=== PATIENT | female | born 2000 | race Caucasian/White ===

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

== ENCOUNTER 2022-10-24 12:28 | Emergency (ER) | payer OTHER, SELFPAY ==
[2022-10-24 12:35] VITALS: BP 136/56; PULSE 99; RESP 16; TEMP 36.7; O2SAT 100
--- NOTE | 2022-10-24 12:43 | ED.DENTAL ---
HPI - Dental/Oral General Chief complaint: Dental/Oral Stated complaint: Toothache Time Seen by Provider: 10/24/22 12:35 Source: patient and RN notes reviewed History of Present Illness HPI Narrative: patient is a 22-year-old female who presents to Urgent Care with her mother with complaints of right upper dental pain and facial swelling. Patient states that it started approximately 2 days ago. States that she has had this tooth looked at before and is supposed to be pulled. Apparently her ENT expressed that the root of the tooth is affecting her sinus cavity. Patient states she also has a lot of right-sided sinus pressure. Denies any fever, nausea or vomiting. States that she has been taking 800 mg ibuprofen. No other acute complaints. No acute distress noted. Patient aware of the plan of care. Some parts of this dictation were generated by voice recognition software and may contain typographical and/or grammatical inaccuracies. Related Data Allergies Allergy/AdvReac Type Severity Reaction Status Date / Time No Known Allergies Allergy Verified 12/15/19 10:50 Review of Systems Review of Systems: CONSTITUTIONAL: Denies fever, chills, or sweats. EYES: Denies visual changes, redness, or discharge. ENT: Denies rhinorrhea, congestion, sore throat, or otalgia. Reports right upper dental pain and facial swelling CARDIOVASCULAR: Denies chest pain, palpitations, or edema. RESPIRATORY: Denies cough or dyspnea. GASTROINTESTINAL: Denies abdominal pain, nausea, vomiting, or diarrhea. GENITOURINARY: Denies dysuria or hematuria. SKIN: Denies rash or itching. MUSCULOSKELETAL: Denies back pain, joint pain, or myalgia. NEUROLOGIC: Denies headache, numbness, or weakness. All other systems reviewed are negative, except as documented in HPI. [facility] Past Medical History Medical History (Updated 10/24/22 @ 12:57 by NAZANIN Jett) No pertinent past medical history Surgical History Surgical History No pertinent past surgical history Family History Family History Mother Medical history non-contributory Social History Social History Smoking status: Never smoker Alcohol intake: never Gender identity (if verbalized by the patient): Female Spiritual care concerns: No Comments At the time of my signature, I reviewed and agree with the nursing past medical, surgical, social, and family history. There is no relevant family history pertinent to the patient complaint. Exam Narrative: GENERAL: This is a well-nourished, well-developed patient, in no apparent distress. HEAD: normocephalic, atraumatic. right frontal sinus tenderness EYES: PERRL. Sclera clear/white. Vision is grossly intact. EARS: External ears normal NOSE: External nose normal with no obvious nasal discharge, nares without redness, no rhinorrhea. THROAT: Mucous membranes moist, posterior pharynx clear. DENTAL: no obvious gumline abscess, edema or erythema To the painful 2, right upper 2nd premolar NECK: Neck supple SKIN: warm, intact with no suspicious lesions or rash, good texture and turgor. NEURO: awake, alert, and oriented to person, place and time. There were no obvious focal neurologic abnormalities. EXTREMITIES: No clubbing, cyanosis, or edema. Course Course Level of Care: Express Care Visit Vital Signs Vital signs: Vital Signs Temperature 98.1 F 10/24/22 12:35 Pulse Rate 99 10/24/22 12:35 Respiratory Rate 16 10/24/22 12:35 Blood Pressure 136/56 L 10/24/22 12:35 Pulse Oximetry 100 10/24/22 12:35 Oxygen Delivery Room Air 10/24/22 12:35 Temperature 98.1 F 10/24/22 12:35 Pulse Rate 99 10/24/22 12:35 Respiratory Rate 16 10/24/22 12:35 Blood Pressure 136/56 L 10/24/22 12:35 Pulse Oximetry 100 10/24/22 12:35 Oxygen Deliver
== END 2022-10-24 13:00 | disposition home or self-care (01) ==
PROVIDERS: Emergency Provider Nurse Practitioner Family; PCP Family Medicine
DX: K08.89 Other specified disorders of teeth and supporting structures (principal)
CPT/HCPCS: 99213; G0463

== ENCOUNTER 2022-12-24 11:15 | Emergency (ER) | payer OTHER, SELFPAY ==
--- NOTE | ~2022-12-24 | XR_ITS ---
EXAMINATION: XR lumbar spine 2-3V DATE: 12/24/2022 13:41 INDICATION: Low back pain. TECHNIQUE: 3 views of lumbar spine were obtained. COMPARISON: None. FINDINGS: There is 4 degrees levocurvature of lumbar spine. Vertebral body heights are normal. There is mildly decreased disc height at L4-L5 and L5-S1. There is multilevel mild facet joint osteoarthrit is. IMPRESSION: 1. Mild lumbar spondylosis. Reviewed, dictated and finalized at location A. IMPRESSION: 1. Mild lumbar spondylosis.
[2022-12-24 12:02] VITALS: BP 142/94; PULSE 76; RESP 18; TEMP 36.7; O2SAT 100
[2022-12-24] MEDS: ACETAMINOPHEN 500 MG TABLET 1000 MG PO (13:10)
--- NOTE | 2022-12-24 13:24 | ED.DENTAL ---
HPI - Dental/Oral General Chief complaint: Dental/Oral Stated complaint: Toothache Time Seen by Provider: 12/24/22 12:31 Source: patient Mode of arrival: ambulatory Limitations: no limitations History of Present Illness HPI Narrative: This is a 22-year-old female that presents to the emergency department with multiple complaints. Reports she has a bad tooth that has been intermittently bothering her for some time. Reports acute pain this morning. Associated with a headache and some right ear pain. Also reports that she went backpacking this weekend and has been having some low back pain since. No known certain injuries, but does report she was carrying about 30 pounds on her back. Denies fever, dysuria, hematuria, numbness or weakness. MD Complaint: tooth pain Location: Tooth # (3) Related Data Allergies Allergy/AdvReac Type Severity Reaction Status Date / Time No Known Allergies Allergy Verified 12/15/19 10:50 Review of Systems Review of Systems: CONSTITUTIONAL: Denies fever ENT: Reports congestion and dentalgia All systems reviewed & are unremarkable except as noted in HPI and below PMFSH Past Medical History Medical History (Updated 12/24/22 @ 14:27 by Meghana Culver PA-C) No pertinent past medical history Surgical History Surgical History No pertinent past surgical history Family History Family History Mother Medical history non-contributory Social History Social History Smoking status: Never smoker Alcohol intake: never Living arrangements: with family Gender identity (if verbalized by the patient): Female Spiritual care concerns: No Exam Narrative: GENERAL: Well-appearing, well-nourished, and in no acute distress. HEAD: Normocephalic, atraumatic. EYES: EOMI. ENT: Nares clear, no rhinorrhea or epistaxis. Mucous membranes moist. Oropharynx without tonsillar hypertrophy exudate or other lesions. Bilateral TMs pearly moreira non-bulging. No trismus. Tooth #3 tender to palpation. No erythema or fluctuance to suggest abscess NECK: Supple. No adenopathy or masses. CHEST: Clear to auscultation. No respiratory distress. No wheezes rales or rhonchi HEART: Regular rate and rhythm. No murmur heard. Normal peripheral pulses. BACK: No midline spinal tenderness EXTREMITIES: Normal range of motion. No edema. Strength equal in bilateral lower extremities (5/5) SKIN: Warm, dry, no rash. NEURO: No focal deficits. Alert and oriented x3. PSYCH: Normal mood and affect Course Course Emergency Course: Patient and family updated on workup and agree with plan of care Vital Signs Vital signs: Vital Signs Temperature 98.1 F 12/24/22 12:02 Pulse Rate 76 12/24/22 12:02 Respiratory Rate 18 12/24/22 12:02 Blood Pressure 142/94 H 12/24/22 12:02 Pulse Oximetry 100 12/24/22 12:02 Oxygen Delivery Room Air 12/24/22 12:02 Temperature 98.1 F 12/24/22 12:02 Pulse Rate 76 12/24/22 12:02 Respiratory Rate 18 12/24/22 12:02 Blood Pressure 142/94 H 12/24/22 12:02 Pulse Oximetry 100 12/24/22 12:02 Oxygen Delivery Room Air 12/24/22 12:02 MDM - Dental/Oral MDM Narrative Medical decision making narrative: Patient presents to the ER with multiple complaints. Reporting dentalgia as well as low back pain after backpacking this weekend. She is afebrile and nontoxic appearing. She is neurologically intact. No evidence for dental abscess on exam. Patient will be started on oral antibiotic. Lumbar spine x-ray is without acute findings. Instructed on care of muscle strain. She is to follow-up with her primary care provider. She was given warnings to return to the ER Was also reporting some chronic sinus problems. Will be given ENT b2b sales consultant for follow-up as needed Differential Diagnosis Differential
--- NOTE | 2022-12-24 13:41 | PC.NURSE ---
patient back from imaging at this time
[2022-12-24] MEDS: FLUCONAZOLE 150 MG TABLET PO (15:06)
== END 2022-12-24 15:12 | disposition home or self-care (01) ==
PROVIDERS: Emergency Provider Physician Assistant; PCP Family Medicine
DX: K08.89 Other specified disorders of teeth and supporting structures (principal); S39.012A Strain of muscle, fascia and tendon of lower back, initial encounter; M47.816 Spondylosis without myelopathy or radiculopathy, lumbar region; X58.XXXA Exposure to other specified factors, initial encounter
CPT/HCPCS: 72100; 81025; 99283; A9270

== ENCOUNTER 2023-06-22 13:50 | Emergency (ER) | payer OTHER, SELFPAY ==
[2023-06-22 14:06] VITALS: BP 162/81; PULSE 76; RESP 16; TEMP 36.2; O2SAT 100
--- NOTE | 2023-06-22 15:23 | ED.GENADULT ---
HPI - General Adult General Chief complaint: Upper Respiratory Infection Stated complaint: congestion Source: patient Mode of arrival: ambulatory Limitations: no limitations History of Present Illness HPI narrative: PATIENT PRESENTS FOR EVALUATION OF SICK SYMPTOMS FOR LAST 2 DAYS. SYMPTOMS INCLUDE SINUS CONGESTION, RHINORRHEA, SORE THROAT AND PRODUCTIVE COUGH OF GREEN SPUTUM. NO FEVER CHILLS, NAUSEA, VOMITING, DIARRHEA. NO RECENT SICK CONTACTS TO HER KNOWLEDGE. SHE IS REQUESTING TO BE EVALUATED FOR COVID. SHE ALSO HAS THE TEST THAT SHE IS SUPPOSED TO TAKE TOMORROW AND WOULD LIKE A NOTE TO ALLOW HER TO RESCHEDULE. Related Data Allergies Allergy/AdvReac Type Severity Reaction Status Date / Time No Known Allergies Allergy Verified 12/15/19 10:50 Review of Systems Review of Systems: CONSTITUTIONAL: DENIES FEVER, CHILLS, OR SWEATS. EYES: DENIES VISUAL CHANGES, REDNESS, OR DISCHARGE. ENT: REPORTS SINUS CONGESTION, RHINORRHEA AND SORE THROAT CARDIOVASCULAR: DENIES CHEST PAIN, PALPITATIONS, OR EDEMA. RESPIRATORY: REPORTS COUGH. DENIES DYSPNEA. GASTROINTESTINAL: DENIES ABDOMINAL PAIN, NAUSEA, VOMITING, OR DIARRHEA. GENITOURINARY: DENIES DYSURIA OR HEMATURIA. SKIN: DENIES RASH OR ITCHING. MUSCULOSKELETAL: DENIES BACK PAIN, JOINT PAIN, OR MYALGIA. NEUROLOGIC: DENIES HEADACHE, NUMBNESS, DIZZINESS, OR WEAKNESS. PSYCHIATRIC: DENIES ANXIETY OR DEPRESSION. [facility] Past Medical History Medical History (Updated 06/22/23 @ 15:22 by Mac Rodrigues, [facility], ) No pertinent past medical history Surgical History Surgical History No pertinent past surgical history Family History Family History Mother Medical history non-contributory Social History Social History Smoking status: Never smoker Alcohol intake: never Living arrangements: with family Gender identity (if verbalized by the patient): Female Spiritual care concerns: No Exam Narrative: GENERAL: WELL-APPEARING, WELL-NOURISHED, AND IN NO ACUTE DISTRESS. HEAD: NORMOCEPHALIC, ATRAUMATIC. EYES: PERRLA AND EOMI. ENT: NARES CLEAR, NO RHINORRHEA OR EPISTAXIS. MUCOUS MEMBRANES MOIST. OROPHARYNX WITHOUT TONSILLAR HYPERTROPHY EXUDATE OR OTHER LESIONS. BILATERAL TMS PEARLY HUMPHREYS NONBULGING NECK: SUPPLE. NO ADENOPATHY OR MASSES. NO CAROTID BRUITS OR JVD CHEST: CLEAR TO AUSCULTATION. NO RESPIRATORY DISTRESS. NO WHEEZES RALES OR RHONCHI HEART: REGULAR RATE AND RHYTHM. NO MURMUR HEARD. NORMAL PERIPHERAL PULSES. ABDOMEN: SOFT, NONTENDER, NONDISTENDED, NORMAL ACTIVE BOWEL SOUNDS. EXTREMITIES: NORMAL RANGE OF MOTION. NO EDEMA. SKIN: WARM, DRY, NO RASH. NEURO: NO FOCAL DEFICITS. ALERT AND ORIENTED X3. PSYCH: NORMAL MOOD AND AFFECT. Course Course Emergency Course: THIS IS A 22-YEAR-OLD FEMALE THAT PRESENTED FOR EVALUATION OF SICK SYMPTOMS. COVID AND INFLUENZA WERE NEGATIVE. EXAM IS CONSISTENT WITH ACUTE VIRAL SYNDROME. PHENYLEPHRINE SHOULD HELP WITH RHINORRHEA. OTHER OTC MEDS FOR SYMPTOM MANAGEMENT. FOLLOW UP WITH PRIMARY PROVIDER. GO TO THE EMERGENCY DEPARTMENT FOR WORSENING SYMPTOMS. PATIENT IN AGREEMENT WITH PLAN OF CARE. Level of Care: Express Care Visit Vital Signs Vital signs: Vital Signs Temperature 36.2 C L 06/22/23 14:06 Pulse Rate 76 06/22/23 14:06 Respiratory Rate 16 06/22/23 14:06 Blood Pressure 162/81 H 06/22/23 14:06 Pulse Oximetry 100 06/22/23 14:06 Oxygen Delivery Room Air 06/22/23 14:06 Temperature 36.2 C L 06/22/23 14:06 Pulse Rate 76 06/22/23 14:06 Respiratory Rate 16 06/22/23 14:06 Blood Pressure 162/81 H 06/22/23 14:06 Pulse Oximetry 100 06/22/23 14:06 Oxygen Delivery Room Air 06/22/23 14:06 Medical Decision Making Vital Signs Vital Signs: Vital Signs Temperature 36.2 C L 06/22/23 14:06 Pulse Rate
== END 2023-06-22 15:32 | disposition home or self-care (01) ==
PROVIDERS: Emergency Provider Nurse Practitioner; PCP Family Medicine
DX: B34.9 Viral infection, unspecified (principal); Z20.822 Contact with and (suspected) exposure to COVID-19
CPT/HCPCS: 87426; 87804; 99213; C9803; G0463